=== PATIENT | male | born 1960 | race Caucasian/White ===

== ENCOUNTER 2017-11-12 14:47 | Emergency (ER) | payer OTHER ==
[~2017-11-12] VITALS: Ht 167.6 cm; Wt 80.0 kg
[2017-11-12 14:54] VITALS: BP 170/98; PULSE 98; RESP 18; TEMP 98.5; O2SAT 98
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
[2017-11-12 16:17] VITALS: BP 155/97; PULSE 90; RESP 18; O2SAT 99
== END 2017-11-12 15:50 | disposition home or self-care (01) ==
LOC: NEPD 14:47
DX: S00.81XA Abrasion of other part of head, initial encounter (principal); F10.920 Alcohol use, unspecified with intoxication, uncomplicated; V43.52XA Car driver injured in collision with other type car in traffic accident, initial encounter; Y90.8 Blood alcohol level of 240 mg/100 ml or more
CPT/HCPCS: 80307; 99283

== ENCOUNTER 2017-11-28 17:15 | Emergency (ER) | payer SELFPAY ==
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
[2017-11-28 17:34] VITALS: BP 192/103; PULSE 104; RESP 20; O2SAT 98
[2017-11-28] MEDS ORDERED: AMBI5TAB PO (17:38)
[2017-11-28] MEDS ORDERED: HYDR-3111 PO (17:38)
[2017-11-28 19:16] VITALS: BP 142/101; PULSE 96; RESP 16; O2SAT 94
== END 2017-11-28 19:41 | disposition home or self-care (01) ==
LOC: PHED 17:15
DX: F10.129 Alcohol abuse with intoxication, unspecified (principal)
CPT/HCPCS: 99282